=== PATIENT | female | born 1975 | race Caucasian/White ===

== ENCOUNTER 2018-05-14 09:13 | Inpatient (IN) | payer OTHER ==
[2018-05-14] MEDS ORDERED: CEFAZOLIN 2 GM/50 ML (PMX) 50 ML IV (10:00)
[2018-05-14] MEDS ORDERED: OXYTOCIN 30 UNITS/LR 500 ML IV ×2 (10:00→19:00)
[2018-05-14] MEDS ORDERED: CARBOPROST 250 MCG INJ IM ×2 (10:00→19:00)
[2018-05-14] MEDS ORDERED: METHYLERGONOVINE 0.2 MG INJ IM ×2 (10:00→19:00)
[2018-05-14] MEDS ORDERED: MISOPROSTOL 200 MCG TAB PR ×2 (10:00→19:00)
[2018-05-14] MEDS: LACTATED RINGER'S 1,000 ML IV ×2 (10:53→21:08)
[2018-05-14 11:32] LABS: ADD MAN DIFF? NO
[2018-05-14 11:36] LABS: BASOPHILS % 0.5 % (0.0-2.0); EOSINOPHILS # 0.1 10^3/ul (0.0-0.5); EOSINOPHILS % 1.5 % (0.0-7.0); HEMATOCRIT 37.4 % (37.0-47.0); HEMOGLOBIN 12.6 g/dl (12.0-16.0); LYMPHOCYTES # 1.5 10^3/ul (0.8-2.9); LYMPHOCYTES % 18.2 % (15.0-51.0); MEAN CORPUSCULAR HEMOGLOBIN 28.7 pg (29.0-33.0); MEAN CORPUSCULAR HGB CONC 33.7 g/dl (32.0-37.0); MEAN CORPUSCULAR VOLUME 85.2 fl (82.0-101.0); MEAN PLATELET VOLUME 9.5 fl (7.4-10.4); MONOCYTE # 0.4 10^3/ul (0.3-0.9); MONOCYTES % 5.2 % (0.0-11.0); NEUTROPHILS % 74.4 % (39.0-77.0); PLATELET COUNT 269 10^3/UL (140-415); RED BLOOD COUNT 4.39 10^6/ul (4.20-5.40)
[2018-05-14 11:58] LABS: INR 0.91; PROTIME 12.3 Sec (11.9-14.9)
[2018-05-14 11:59] LABS: PARTIAL THROMBOPLASTIN TIME 28.5 Sec (25.0-35.0)
[2018-05-14 12:37] LABS: HEPATITIS B SURFACE ANTIGEN NEGATIVE (NEGATIVE)
[2018-05-14] MEDS ORDERED: morphine SULFATE/PF (10 MG/10 ML) INJ (13:58)
[2018-05-14] MEDS ORDERED: BUPIVACAINE 0.75%/DEXT (SPINAL) 2 ML INJ (13:58)
[2018-05-14] MEDS ORDERED: FENTAnyl 50 MCG/ML VIAL (13:58)
[2018-05-14] MEDS ORDERED: DEXAMETHASONE 4 MG/ML 1 ML INJ (14:14)
[2018-05-14] MEDS ORDERED: ONDANSETRON 4 MG INJ (14:14)
[2018-05-14] MEDS ORDERED: PHENYLephrine (100 MCG/ML) 10ML SYG (15:47)
[2018-05-14] MEDS ORDERED: DIPHENHYDRAMINE 50 MG INJ IV ×2 (16:00→19:00)
[2018-05-14] MEDS ORDERED: ONDANSETRON 4 MG INJ IV ×2 (16:00→19:00)
[2018-05-14] MEDS ORDERED: NALOXONE (0.4 MG/ML) INJ IV (16:00)
[2018-05-14] MEDS ORDERED: ZOLPIDEM 5 MG TAB PO ×2 (16:00→19:00)
[2018-05-14] MEDS ORDERED: HYDROmorphONE 0.5 MG/0.5 ML SYG IV ×2 (16:00)
[2018-05-14] MEDS: OXYTOCIN 30 UNITS/LR 500 ML IV (16:43)
[2018-05-14 18:58] LABS: RAPID PLASMA REAGIN NONREACTIVE (NR)
[2018-05-14] MEDS ORDERED: LANOLIN 7 GM TUBE TOP (19:00)
[2018-05-14] MEDS ORDERED: OXYCODONE/ACETAMINOPHEN (5/325) TAB PO ×2 (19:00)
[2018-05-14] MEDS: SENNA/DOCUSATE NA (8.6MG/50MG) TAB PO (21:00)
[2018-05-15] MEDS: LACTATED RINGER'S 1,000 ML IV ×3 (04:52→18:44)
[2018-05-15] MEDS: SENNA/DOCUSATE NA (8.6MG/50MG) TAB PO ×2 (09:00→21:45)
[2018-05-15 11:43] LABS: ADD MAN DIFF? NO
[2018-05-15 11:55] LABS: BASOPHILS % 0.3 % (0.0-2.0); EOSINOPHILS # 0.1 10^3/ul (0.0-0.5); EOSINOPHILS % 0.5 % (0.0-7.0); HEMATOCRIT 34.8 % (37.0-47.0); HEMOGLOBIN 11.7 g/dl (12.0-16.0); LYMPHOCYTES # 2.3 10^3/ul (0.8-2.9); LYMPHOCYTES % 19.2 % (15.0-51.0); MEAN CORPUSCULAR HEMOGLOBIN 28.3 pg (29.0-33.0); MEAN CORPUSCULAR HGB CONC 33.6 g/dl (32.0-37.0); MEAN CORPUSCULAR VOLUME 84.3 fl (82.0-101.0); MEAN PLATELET VOLUME 9.5 fl (7.4-10.4); MONOCYTE # 0.9 10^3/ul (0.3-0.9); MONOCYTES % 7.7 % (0.0-11.0); NEUTROPHIL # 8.5 10^3/ul (1.6-7.5); PLATELET COUNT 246 10^3/UL (140-415); RED BLOOD COUNT 4.13 10^6/ul (4.20-5.40); RED CELL DISTRIBUTION WIDTH 12.2 % (11.5-14.5)
[2018-05-15 11:55] LABS: WHITE BLOOD COUNT 11.8 10^3/ul (4.8-10.8)
[2018-05-15] MEDS: KETOROLAC 30 MG INJ IV (13:43)
[2018-05-15] MEDS: IBUPROFEN 600 MG TAB PO (17:25)
[2018-05-16] MEDS: IBUPROFEN 600 MG TAB PO ×4 (00:13→17:32)
[2018-05-16] MEDS: LACTATED RINGER'S 1,000 ML IV ×3 (02:44→22:33)
[2018-05-16] MEDS: SENNA/DOCUSATE NA (8.6MG/50MG) TAB PO ×2 (10:14→21:31)
[2018-05-17] MEDS: IBUPROFEN 600 MG TAB PO ×3 (00:30→12:00)
[2018-05-17] MEDS: LACTATED RINGER'S 1,000 ML IV (02:44)
[2018-05-17] MEDS: SENNA/DOCUSATE NA (8.6MG/50MG) TAB PO (08:56)
[2018-05-17] MEDS: DIPHTH/TET/ACEL PERTUSS (ADULT) 0.5 ML VIAL IM* (09:20)
== END 2018-05-17 12:40 | disposition home or self-care (01) | DRG 766 ==
LOC: L-D 09:13 → PP1 18:41
PROVIDERS: Obstetrics & Gynecology
PROC: 10D00Z1 Extraction of Products of Conception, Low, Open Approach (ICD-10-PCS; principal; 2018-05-14)
PROC: 0UL70ZZ Occlusion of Bilateral Fallopian Tubes, Open Approach (ICD-10-PCS; 2018-05-14)
PROC: 3E033VJ Introduction of Other Hormone into Peripheral Vein, Percutaneous Approach (ICD-10-PCS; 2018-05-14)
DX: O34.211 Maternal care for low transverse scar from previous cesarean delivery (principal); O32.1XX0 Maternal care for breech presentation, not applicable or unspecified; Z30.2 Encounter for sterilization; Z3A.39 39 weeks gestation of pregnancy; Z37.0 Single live birth
CPT/HCPCS: 85025; 85610; 85730; 86592; 86850; 86900; 86901; 87340; 88302